=== PATIENT | male | born 1960 | race Two or more races ===

== ENCOUNTER 2016-06-16 18:14 | Inpatient (IN) | payer BC ==
[~2016-06-16] VITALS: Ht 170.2 cm; Wt 77.6 kg
[2016-06-16] MEDS ORDERED: METFORMIN HCL1000 M1 ORAL (18:51)
[2016-06-16] MEDS ORDERED: LIPITOR10 MG ORAL (18:51)
[2016-06-16] MEDS ORDERED: PRINIVIL10 MG ORAL (18:51)
[2016-06-16 19:19] LABS: MEAN CORPUSCULAR HGB CONC 32.9 G/DL (32.0-36.0); MEAN CORPUSCULAR VOLUME 88 FL (80-99); MEAN PLATELET VOLUME 5.3 FL (6.5-10.1); PLATELET COUNT 208 K/UL (150-450); RED BLOOD COUNT 4.17 M/UL (4.70-6.10); RED CELL DISTRIBUTION WIDTH 11.8 % (11.6-14.8); WHITE BLOOD COUNT 10.3 K/UL (4.8-10.8)
[2016-06-16 19:27] LABS: APPEARANCE,URINE SLIGHTLY CLOUDY; KETONES,URINE NEGATIVE (NEGATIVE); LEUKOCYTE ESTERASE ,URINE NEGATIVE (NEGATIVE); NITRITE,URINE NEGATIVE (NEGATIVE); PH,URINE 5 (4.5-8.0); PROTEIN,URINE 3+ (NEGATIVE); UROBILINOGEN,URINE NORMAL MG/DL (0.0-1.0)
[2016-06-16 19:49] LABS: ALANINE AMINOTRANSFERASE 91 U/L (3-41); ALBUMIN/GLOBULIN RATIO 0.9 (1.0-2.7); ANION GAP 17 (5-15); ASPARTATE AMINO TRANSFERASE 79 U/L (5-40); CARBON DIOXIDE 24 mEQ/L (20-30); CHLORIDE 97 mEQ/L (98-107); CREATININE 1.1 mg/dL (0.7-1.2); GLOMERULAR FILTRATION RATE > 60 mL/min (>60); HEMOLYSIS 6; POTASSIUM 3.3 mEQ/L (3.4-4.9); SODIUM 138 mEQ/L (135-145); TOTAL PROTEIN 7.3 g/dL (6.6-8.7)
[2016-06-16 19:54] LABS: BACTERIA,URINE FEW /HPF; SQUAMOUS EPITHELIAL CELL,UR OCCASIONAL /LPF (NONE/OCC); WBC,URINE 0-2 /HPF (0 - 0)
[2016-06-16 20:02] LABS: LIPASE 448 U/L (< 60)
[2016-06-16 20:08] LABS: BAND NEUTROPHILS % (MANUAL) 7 % (0-8); LYMPHOCYTES % (MANUAL) 7 % (20-45); NEUTROPHILS % (MANUAL) 84 % (45-75); TOTAL CELLS COUNTED 100
[2016-06-16 20:09] LABS: BASOPHILS % (MANUAL) 0 % (0-2); EOSINOPHILS % (MANUAL) 0 % (0-3); PLATELET ESTIMATE ADEQUATE; PLATELET MORPHOLOGY NORMAL
[2016-06-16] MEDS ORDERED: Morphine Sulfate 4mg/ml Inj IVP ONE (20:15)
[2016-06-16] MEDS: LR 1000ml 1,000 ML IV SCH (20:23)
--- NOTE | 2016-06-16 20:46 | Emergency Room Report ---
History of Present Illness General Chief Complaint: Abdominal Pain Source: Patient Present Illness HPI 56 YO M with Type 2 DM with 1 week nausea and abdominal pain (non -focal) radiating to back. Denies fever/chills, diarrhea, vomiting, urinary symptoms, heavy ETOH use, previous history of pancreatitis/gallstones. Denies other medical problems. Not taking any OTC meds. Patient states taking experimental DM Type 2 drug Dulagutide which he was told can cause pancreatitis as side effect. Allergies: Coded Allergies: No Known Allergies (Unverified , 06/16/16) Patient History Past Medical History: DM Past Surgical History: none Pertinent Family History: none Social History: Denies: alcohol use, drug use, smoking Immunizations: UTD Reviewed Nursing Documentation: PMH: Agreed, PSxH: Agreed Nursing Documentation-PMH Hx Diabetes: Yes Review of Systems All Other Systems: negative except mentioned in HPI Physical Exam Vital Signs Date Time Temp Pulse Resp B/P Pulse Ox O2 Delivery O2 Flow Rate FiO2 06/16/16 18:44 98.2 111 16 138/71 97 Sp02 EP Interpretation: reviewed, normal General Appearance: normal inspection, well appearing, no apparent distress, alert, GCS 15, non-toxic Head: normocephalic, atraumatic Eyes: bilateral eye EOMI, bilateral eye PERRL ENT: normal ENT inspection, hearing grossly normal, normal voice Neck: normal inspection, full range of motion, supple, no bony tend Respiratory: normal inspection, lungs clear, normal breath sounds, no respiratory distress, no retraction, no wheezing Cardiovascular #1: regular rate, rhythm, no edema Gastrointestinal: normal inspection, normal bowel sounds, non tender, soft, no mass, no organomegaly, non-distended, no guarding, no hernia, no pulsatile mass , no rebound Genitourinary: no CVA tenderness Musculoskeletal: normal inspection, back normal, normal range of motion, Ora' s Sign negative Neurologic: normal inspection, alert, oriented x3, responsive, procurement cost coordinator III-XII nml as tested, speech normal Psychiatric: normal inspection, judgement/insight normal, mood/affect normal Skin: normal inspection, normal color, no rash Medical Decision Making Diagnostic Impression: Primary Impression: Abdominal pain Qualified Codes: R10.84 - Generalized abdominal pain Additional Impression: Pancreatitis Qualified Codes: K85.30 - Drug induced acute pancreatitis without necrosis or infection ER Course Labs: No leuks. H&H stable. Elevated lipase 448. Mild elevation in LFTs. UA negative for infection CTAP pending Analgesia, IVF hydration, NPO placed Endorsed to Dr Lawrence and GARY Galindo at 845pm for med surg admission Last Vital Signs Date Time Temp Pulse Resp B/P Pulse Ox O2 Delivery O2 Flow Rate FiO2 06/16/16 18:44 98.2 111 16 138/71 97 Status: improved Disposition: ADMITTED INPATIENT Condition: Serious Referrals: NOT CHOSEN MARSHALL/,REFERRING (PCP) CHRISTEL ROLLINS M.D. Jun 16, 2016 20:46
[2016-06-16 20:47] VITALS: BP 142/76
[2016-06-16 23:30] VITALS: BP 165/73
[2016-06-16] MEDS ORDERED: Acetaminophen 650 MG SUPP RECTAL ONE (23:36)
[2016-06-16] MEDS: Morphine Sulfate 4mg/ml Inj IVP PRN (23:46)
[2016-06-16] MEDS ORDERED: Cefepime 1gm vial ONE (23:59)
[2016-06-17] MEDS ORDERED: metroNIDAZOLE 500mg 100 ML IVPB ONE
[2016-06-17] MEDS ORDERED: Cefepime HCl 1 GM in D5W 55 ML IVPB ONE ×2
[2016-06-17] MEDS ORDERED: Morphine Sulfate 4mg/ml Inj IVP PRN (00:45)
[2016-06-17] MEDS ORDERED: Morphine Sulfate 2mg/ml Inj IVP PRN (00:45)
[2016-06-17 01:10] VITALS: BP 152/54
[2016-06-17] MEDS: LR 1000ml 1,000 ML IV SCH (01:15)
[2016-06-17 01:20] VITALS: BP 159/69
[2016-06-17 04:00] VITALS: BP 144/61
[2016-06-17] MEDS: NovoLOG Insulin Flexpen SUBQ SCH ×4 (06:30→21:25)
[2016-06-17] MEDS: Morphine Sulfate 4mg/ml Inj IVP PRN (07:09)
[2016-06-17 08:00] VITALS: BP 156/67
[2016-06-17 08:24] LABS: MEAN CORPUSCULAR HEMOGLOBIN 29.8 PG (27.0-31.0); MEAN CORPUSCULAR VOLUME 88 FL (80-99); MEAN PLATELET VOLUME 5.4 FL (6.5-10.1); PLATELET COUNT 191 K/UL (150-450); RED BLOOD COUNT 3.75 M/UL (4.70-6.10); WHITE BLOOD COUNT 12.4 K/UL (4.8-10.8)
[2016-06-17 08:51] LABS: ALANINE AMINOTRANSFERASE 89 U/L (3-41); ANION GAP 16 (5-15); ASPARTATE AMINO TRANSFERASE 70 U/L (5-40); CALCIUM 8.1 mg/dL (8.6-10.2); CARBON DIOXIDE 22 mEQ/L (20-30); CHLORIDE 100 mEQ/L (98-107); CREATININE 1.1 mg/dL (0.7-1.2); GLOMERULAR FILTRATION RATE > 60 mL/min (>60); HEMOLYSIS 2; POTASSIUM 4.6 mEQ/L (3.4-4.9); SODIUM 138 mEQ/L (135-145)
[2016-06-17] MEDS: Lisinopril 10mg tab ORAL SCH (09:00)
[2016-06-17] MEDS: metFORMIN 500mg tab ORAL SCH ×2 (09:00→18:00)
[2016-06-17] MEDS: Heparin 5000 units/ml inj SUBQ SCH ×2 (09:01→21:26)
--- NOTE | 2016-06-17 10:12 | Diagnostic Imaging Report ---
Indication: Abdominal pain Technique: Continuous helical transaxial imaging of the abdomen and pelvis was obtained from the lung bases to the pubic symphysis during intravenous contrast administration. Coronal 2-D reformats were also obtained. Study obtained in a Siemens sensation [address] Total Dose length Product (DLP): [address] Dose Index Volume (CTDIvol): 18, 18, 8, mGy Comparison: None Findings: Reticular densities and atelectasis noted at the lung bases. Gallbladder is unremarkable. Mildly distended loops of small bowel are noted in the abdomen. Suspect enteritis. Bladder is unremarkable. There is a small right inguinal hernia containing fat. Appendix is normal. Arterial vascular calcifications are noted. Perinephric stranding noted bilaterally nonspecific. Within the posterior part of the left lobe of the liver in the lateral segment there is a hypodense mass with some pooling of contrast along the periphery. This is probably hemangioma but not proven are adequately evaluated on the current exam as obtained. The lesion measures about 3.2 x 2.5 cm. Adrenal glands are unremarkable. The pancreas is unremarkable. Spleen noted and unremarkable. Cysts small hiatal hernia is present. Few diverticula noted. Impression: Suspected mild enteritis. Please correlate clinically. Normal appendix Perinephric stranding nonspecific. Small mass noted within the liver probably hemangioma. Suggest further evaluation. Diverticulosis of the colon Small inguinal hernia containing fat on the right. Small hiatal hernia. Interstitial opacities at the lung bases nonspecific. Basilar atelectasis also noted. Atherosclerotic vascular disease Dr. Reich has communicated the preliminary results to the Emergency Department. There are no significant discrepancies. The CT scanner at [facility] is accredited by the [employer] and the scans are performed using protocols designed to limit radiation exposure to as low as reasonably achievable to attain images of sufficient resolution adequate for diagnostic evaluation.
[2016-06-17 10:15] LABS: BAND NEUTROPHILS % (MANUAL) 3 % (0-8); BASOPHILS % (MANUAL) 1 % (0-2); EOSINOPHILS % (MANUAL) 1 % (0-3); LYMPHOCYTES % (MANUAL) 6 % (20-45); NEUTROPHILS % (MANUAL) 87 % (45-75); PLATELET ESTIMATE ADEQUATE; PLATELET MORPHOLOGY NORMAL; TOTAL CELLS COUNTED 100
[2016-06-17 12:00] VITALS: BP 154/74
--- NOTE | 2016-06-17 12:46 | Infectious Diseases Prog Note ---
Assessment/Plan Problems: (1) Pancreatitis Assessment & Plan: suspect due to alchol abuse, need to rule out gall stones, will order gall bladder US, continue unasyn for now empirically (2) Cholecystitis, acute Assessment & Plan: will order liver US to confirm , continue unasyn for now (3) Fever Assessment & Plan: due to the above, continue antibiotics and tylenol (4) Abdominal pain Assessment & Plan: due to the above, continue pain management as per primary Subjective Allergies: Coded Allergies: No Known Allergies (Unverified , 06/16/16) Objective Vital Signs Last 24 Hour Vital Signs Date Time Temp Pulse Resp B/P Pulse Ox O2 Delivery O2 Flow Rate FiO2 06/17/16 12:00 100.0 105 18 154/74 94 Nasal Cannula 2.0 06/17/16 09:00 156/67 06/17/16 08:00 96.4 99 18 156/67 94 Nasal Cannula 2.0 06/17/16 07:39 98.0 06/17/16 04:00 98.0 111 18 144/61 95 Nasal Cannula 2.0 06/17/16 01:20 98.4 113 20 159/69 93 Nasal Cannula 2.0 06/17/16 01:15 100.5 110 28 152/54 95 Nasal Cannula 3.0 06/17/16 01:10 100.5 110 28 152/54 95 Nasal Cannula 3.0 06/17/16 00:28 100.5 06/16/16 23:30 102.3 123 31 165/73 92 Nasal Cannula 3.0 06/16/16 20:53 98.2 06/16/16 20:47 98.2 89 16 142/76 97 06/16/16 18:44 98.2 111 16 138/71 97 Height (Feet): 5 Height (Inches): 7.00 Weight (Pounds): 171 Laboratory Tests Test 06/16/16 18:57 06/16/16 23:59 06/17/16 05:45 White Blood Count 10.3 K/UL (4.8-10.8) 12.4 K/UL (4.8-10.8) H Red Blood Count 4.17 M/UL (4.70-6.10) L 3.75 M/UL (4.70-6.10) L Hemoglobin 12.1 G/DL (14.2-18.0) L 11.2 G/DL (14.2-18.0) L Hematocrit 36.8 % (42.0-52.0) L 32.9 % (42.0-52.0) L Mean Corpuscular Volume 88 FL (80-99) 88 FL (80-99) Mean Corpuscular Hemoglobin 29.0 PG (27.0-31.0) 29.8 PG (27.0-31.0) Mean Corpuscular Hemoglobin Concent 32.9 G/DL (32.0-36.0) 34.0 G/DL (32.0-36.0) Red Cell Distribution Width 11.8 % (11.6-14.8) 12.0 % (11.6-14.8) Platelet Count 208 K/UL (150-450) 191 K/UL (150-450) Mean Platelet Volume 5.3 FL (6.5-10.1) L 5.4 FL (6.5-10.1) L Neutrophils (%) (Auto) % (45.0-75.0) % (45.0-75.0) Lymphocytes (%) (Auto) % (20.0-45.0) % (20.0-45.0) Monocytes (%) (Auto) % (1.0-10.0) % (1.0-10.0) Eosinophils (%) (Auto) % (0.0-3.0) % (0.0-3.0) Basophils (%) (Auto) % (0.0-2.0) % (0.0-2.0) Differential Total Cells Counted 100 100 Neutrophils % (Manual) 84 % (45-75) H 87 % (45-75) H Lymphocytes % (Manual) 7 % (20-45) L 6 % (20-45) L Monocytes % (Manual) 2 % (1-10) 2 % (1-10) Eosinophils % (Manual) 0 % (0-3) 1 % (0-3) Basophils % (Manual) 0 % (0-2) 1 % (0-2) Band Neutrophils 7 % (0-8) 3 % (0-8) Platelet Estimate Adequate Adequate Platelet Morphology Normal Normal Red Blood Cell Morphology Normal Normal Urine Color Pale yellow Urine Appearance Slightly cloudy Urine pH 5 (4.5-8.0) Urine Specific [place] 1.020 (1.005-1.035) Urine Protein 3+ (NEGATIVE) H Urine Glucose (UA) Negative (NEGATIVE) Urine Ketones Negative (NEGATIVE) Urine Occult Blood 1+ (NEGATIVE) H Urine Nitrite Negative (NEGATIVE) Urine Bilirubin Negative (NEGATIVE) Urine Urobilinogen Normal MG/DL (0.0-1.0) Urine Leukocyte Esterase Negative (NEGATIVE) Urine RBC 2-4 /HPF (0 - 0) H Urine WBC 0-2 /HPF (0 - 0) Urine Squamous Epithelial Cells Occasional /LPF Urine Bacteria Few /HPF (NONE) Sodium Level 138 mEQ/L (135-145) 138 mEQ/L (135-145) Potassium Level 3.3 mEQ/L (3.4-4.9) L 4.6 mEQ/L (3.4-4.9) Chloride Level 97 mEQ/L (98-107) L 100 mEQ/L (98-107) Carbon Dioxide Level 24 mEQ/L (20-30) 22 mEQ/L (20-30) Anion Gap 17 (5-15) H 16 (5-15) H Blood Urea Nitrogen 21 mg/dL (7-23) 19 mg/dL (7-23) Creatinine 1.1 mg/dL (0.7-1.2) 1.1 mg/dL (0.7-1.2) Estimat Glomerular Filtration Rate > 60 mL/min (>60) > 60 mL/min (>60) Glucose Level 250 mg/dL (74-106) H 282 mg/dL (74-106) H Calcium Level 9.0 mg/dL (8.6-10.2) 8.1 mg/dL (8.6-10.2) L Total Bilirubin 0.5 mg/dL (0.0-1.2) 0.4 mg/dL (0.0-1.2) Aspartate Amino Transf (AST/SGOT) 79 U/L (5-40) H 70 U/L (5-40) H Alanine Aminotransferase (ALT/SGPT) 91 U/L (3-41) H 89 U/L (3-41) H Alkaline Phosphatase 93 U/L (40-129) 81 U/L (40-129) Total Protein 7.3 g/dL (6.6-8.7) 6.0 g/dL (6.6-8.7) L Albumin 3.6 g/dL (3.5-5.2) 3.0 g/dL (3.5-5.2) L Globulin 3.7 g/dL 3.0 g/dL Albumin/Globulin Ratio 0.9 (1.0-2.7) L 1.0 (1.0-2.7) Lipase 448 U/L (< 60) H Lactic Acid Level 1.30 mmol/L (0.66-2.22) Current Medications Medications (Trade) Dose Ordered Sig/Melvin Route PRN Reason Start Time Stop Time Status Last Admin Dose Admin Acetaminophen (Tylenol) 650 mg Q4H PRN ORAL fever 06/17/16 00:45 07/17/16 00:44 06/17/16 12:23 Ampicillin Sodium/ Sulbactam Sodium/ Sodium Chloride (Unasyn/Sodium Chloride) 110 ml @ 220 mls/hr Q6HR IVPB 06/17/16 12:00 06/24/16 11:59 Dextrose (Dextrose 50%) STAT PRN IV Hypoglycemia 06/17/16 00:45 07/17/16 00:44 Dextrose/ Electrolytes (D5NS W/KCl 20meq 1000ml) 1,000 ml @ 100 mls/hr Q10H IV 06/17/16 01:36 07/17/16 01:35 06/17/16 02:23 Heparin Sodium (Porcine) (Heparin 5000 units/ml) 5,000 units EVERY 12 HOURS SUBQ 06/17/16 09:00 07/17/16 08:59 06/17/16 09:01 Insulin Aspart BEFORE MEALS AND HS SUBQ 06/17/16 06:30 07/17/16 06:29 Lisinopril (Zestril) 10 mg DAILY ORAL 06/17/16 09:00 07/17/16 08:59 06/17/16 09:00 Metformin HCl (Glucophage) 1,000 mg BID ORAL 06/17/16 09:00 07/17/16 08:59 06/17/16 09:00 Morphine Sulfate (Morphine Sulfate) 2 mg Q4H PRN IVP Moderate Pain (Pain Scale 4-6) 06/17/16 00:45 06/24/16 00:44 Morphine Sulfate (Morphine Sulfate) 4 mg Q4H PRN IVP Severe Pain (Pain Scale 7-10) 06/17/16 00:45 06/24/16 00:44 Morphine Sulfate 4 mg 4 mg Q4H PRN IVP For Pain 06/16/16 23:45 06/23/16 23:44 06/17/16 07:09 Ondansetron HCl (Zofran) 4 mg Q6H PRN IVP Nausea & Vomiting 06/17/16 00:45 07/17/16 00:44 Gerardo Rodriguez M.D. Jun 17, 2016 12:46
[2016-06-17] MEDS: Ampicillin/Sulbactam Sod 3 GM in NS 110 ML IVPB SCH ×2 (13:07→18:59)
[2016-06-17 17:57] VITALS: BP 127/67
--- NOTE | 2016-06-17 20:18 | Consultation ---
DATE OF CONSULTATION: 06/17/2016 CONSULTING PHYSICIAN: Jason Anders M.D. REFERRING PHYSICIAN: Jose Carlos Gordon M.D. CHIEF COMPLAINT: Nausea, vomiting, and abdominal pain. 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 In the ER, the patient had labs. The patient's lipase was elevated to about 448, and the patient was diagnosed with possible pancreatitis and admitted to the hospital. PAST MEDICAL HISTORY: 1. Diabetes. 2. Hypertension. 3. Hypercholesterolemia. ALLERGIES: No known drug allergies. MEDICATIONS: Please see medication reconciliation list. SOCIAL HISTORY: The patient smokes about one pack to one and half pack per day. Alcohol, denies any alcohol usage. He had prior history of, 20 years ago, alcohol abuse, but not anymore. No IV drug abuse. 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 FAMILY HISTORY: No family history of GI malignancies. PAST SURGICAL HISTORY: The patient has a rectal abscess drainage x2. No prior history of endoscopy or colonoscopy. REVIEW OF SYSTEMS: A 10-point review of systems was performed and pertinent positives as mentioned in history of present illness. PHYSICAL EXAMINATION: GENERAL: A well-developed male, in no acute distress. VITAL SIGNS: Most recent vital signs, temperature is 98 degrees, pulse is 111, respirations 18, and blood pressure is 144/61. HEENT: Normocephalic. Sclerae anicteric. NECK: Supple. No lymphadenopathy. CARDIOVASCULAR: Regular rate and rhythm. Plus S1 and S2. LUNGS: Clear to auscultation bilaterally. ABDOMEN: Positive bowel sounds. Soft. Minimal tenderness to palpation in the epigastric area noted. No adenopathy. EXTREMITIES: No cyanosis, clubbing, or edema. LABORATORY DATA: White count is 12.4, hemoglobin 11.2, hematocrit 32.9, and platelet count is 191,000. AST was 79, ALT of 91. Lipase was 448. ASSESSMENT: This is a 56-year-old male with chemical pancreatitis, abdominal pain, and history of diabetes. PLAN: The patient to be started on a clear liquid diet. We will get an abdominal ultrasound to rule out fatty liver or gallbladder disease. We will repeat the labs for tomorrow. Check lipid panel to rule out hypertriglyceridemia as a cause of pancreatitis. Anemia workup. The patient at one point would need an endoscopy and colonoscopy for workup of anemia and also given he is over 50 and never had a colonoscopy before. I want to thank, Dr. Jose Carlos Gordon, for this kind referral. Jason Anders M.D. DR: CASPER JOB#: [id number] CC: Jose Carlos Gordon M.D.; Fax#: [phone]
--- NOTE | 2016-06-17 20:29 | History and Physical ---
History of Present Illness General Date patient seen: Jun 17, 2016 Reason for Hospitalization: Abdominal Pain Present Illness HPI 56 y/o male with history of DM and hyperlipidemia presented to the ED c/o abdominal pain and nausea for 1 week. Denies any fever or chills. Denied any fever or chills. Patient states he has been taking experimental DM Type 2 drug Dulagutide which he was told can cause pancreatitis as a side effect. His lipase levels were elevated and admitted for further care. Allergies: Coded Allergies: No Known Allergies (Unverified , 06/16/16) Medication History Scheduled Atorvastatin Calcium* (Lipitor*), 10 MG ORAL DAILY, (Reported) Lisinopril* (Prinivil*), 10 MG ORAL DAILY, (Reported) Metformin Hcl* (Metformin Hcl*), 1,000 MG ORAL BID, (Reported) Patient History History Provided By: Patient Healthcare decision maker SELF Resuscitation status Full Code Advanced Directive on File N/A Past Medical/Surgical History Past Medical/Surgical History: (1) DM (diabetes mellitus) Review of Systems All Other Systems: negative except mentioned in HPI Physical Exam General Appearance: WD/WN, no apparent distress HEENT: normocephalic, atraumatic Neck: supple Respiratory/Chest: lungs clear Cardiovascular/Chest: normal rate, regular rhythm Abdomen: non tender, soft Extremities: no edema Neurologic: alert, oriented x 3 Last 24 Hour Vital Signs Date Time Temp Pulse Resp B/P Pulse Ox O2 Delivery O2 Flow Rate FiO2 06/17/16 17:57 97.9 77 20 127/67 97 Nasal Cannula 2.0 06/17/16 13:22 98.8 06/17/16 12:00 100.0 105 18 154/74 94 Nasal Cannula 2.0 06/17/16 09:00 156/67 06/17/16 08:00 96.4 99 18 156/67 94 Nasal Cannula 2.0 06/17/16 07:39 98.0 06/17/16 04:00 98.0 111 18 144/61 95 Nasal Cannula 2.0 06/17/16 01:20 98.4 113 20 159/69 93 Nasal Cannula 2.0 06/17/16 01:15 100.5 110 28 152/54 95 Nasal Cannula 3.0 06/17/16 01:10 100.5 110 28 152/54 95 Nasal Cannula 3.0 06/17/16 00:28 100.5 06/16/16 23:30 102.3 123 31 165/73 92 Nasal Cannula 3.0 06/16/16 20:53 98.2 06/16/16 20:47 98.2 89 16 142/76 97 Intake and Output 06/16/16 06/17/16 19:00 07:00 Intake Total 350 ml Output Total 950 ml Balance -600 ml Intake IV Total 350 ml Output Urine Total 950 ml Laboratory Tests Test 06/16/16 23:59 06/17/16 05:45 06/17/16 16:20 Lactic Acid Level 1.30 mmol/L (0.66-2.22) White Blood Count 12.4 K/UL (4.8-10.8) H Red Blood Count 3.75 M/UL (4.70-6.10) L Hemoglobin 11.2 G/DL (14.2-18.0) L Hematocrit 32.9 % (42.0-52.0) L Mean Corpuscular Volume 88 FL (80-99) Mean Corpuscular Hemoglobin 29.8 PG (27.0-31.0) Mean Corpuscular Hemoglobin Concent 34.0 G/DL (32.0-36.0) Red Cell Distribution Width 12.0 % (11.6-14.8) Platelet Count 191 K/UL (150-450) Mean Platelet Volume 5.4 FL (6.5-10.1) L Neutrophils (%) (Auto) % (45.0-75.0) Lymphocytes (%) (Auto) % (20.0-45.0) Monocytes (%) (Auto) % (1.0-10.0) Eosinophils (%) (Auto) % (0.0-3.0) Basophils (%) (Auto) % (0.0-2.0) Differential Total Cells Counted 100 Neutrophils % (Manual) 87 % (45-75) H Lymphocytes % (Manual) 6 % (20-45) L Monocytes % (Manual) 2 % (1-10) Eosinophils % (Manual) 1 % (0-3) Basophils % (Manual) 1 % (0-2) Band Neutrophils 3 % (0-8) Platelet Estimate Adequate Platelet Morphology Normal Red Blood Cell Morphology Normal Sodium Level 138 mEQ/L (135-145) Potassium Level 4.6 mEQ/L (3.4-4.9) Chloride Level 100 mEQ/L (98-107) Carbon Dioxide Level 22 mEQ/L (20-30) Anion Gap 16 (5-15) H Blood Urea Nitrogen 19 mg/dL (7-23) Creatinine 1.1 mg/dL (0.7-1.2) Estimat Glomerular Filtration Rate > 60 mL/min (>60) Glucose Level 282 mg/dL (74-106) H Calcium Level 8.1 mg/dL (8.6-10.2) L Total Bilirubin 0.4 mg/dL (0.0-1.2) Aspartate Amino Transf (AST/SGOT) 70 U/L (5-40) H Alanine Aminotransferase (ALT/SGPT) 89 U/L (3-41) H Alkaline Phosphatase 81 U/L (40-129) Total Protein 6.0 g/dL (6.6-8.7) L Albumin 3.0 g/dL (3.5-5.2) L Globulin 3.0 g/dL Albumin/Globulin Ratio 1.0 (1.0-2.7) Urine Opiates Screen Positive (NEGATIVE) H Urine Barbiturates Screen Negative (NEGATIVE) Phencyclidine (PCP) Screen Negative (NEGATIVE) Urine Amphetamines Screen Negative (NEGATIVE) Urine Benzodiazepines Screen Negative (NEGATIVE) Urine Cocaine Screen Negative (NEGATIVE) Urine Marijuana (THC) Screen Negative (NEGATIVE) Height (Feet): 5 Height (Inches): 7.00 Weight (Pounds): 171 Medications Current Medications Medications (Trade) Dose Ordered Sig/Melvin Route PRN Reason Start Time Stop Time Status Last Admin Dose Admin Acetaminophen (Tylenol) 650 mg Q4H PRN ORAL fever 06/17/16 00:45 07/17/16 00:44 06/17/16 18:59 Ampicillin Sodium/ Sulbactam Sodium/ Sodium Chloride (Unasyn/Sodium Chloride) 110 ml @ 220 mls/hr Q6HR IVPB 06/17/16 12:00 06/24/16 11:59 06/17/16 18:59 Dextrose (Dextrose 50%) STAT PRN IV Hypoglycemia 06/17/16 00:45 07/17/16 00:44 Dextrose/ Electrolytes (D5NS W/KCl 20meq 1000ml) 1,000 ml @ 100 mls/hr Q10H IV 06/17/16 01:36 07/17/16 01:35 06/17/16 13:06 Heparin Sodium (Porcine) (Heparin 5000 units/ml) 5,000 units EVERY 12 HOURS SUBQ 06/17/16 09:00 07/17/16 08:59 06/17/16 09:01 Insulin Aspart BEFORE MEALS AND HS SUBQ 06/17/16 06:30 07/17/16 06:29 06/17/16 13:14 Lisinopril (Zestril) 10 mg DAILY ORAL 06/17/16 09:00 07/17/16 08:59 06/17/16 09:00 Metformin HCl (Glucophage) 1,000 mg BID ORAL 06/17/16 09:00 07/17/16 08:59 06/17/16 09:00 Morphine Sulfate (Morphine Sulfate) 2 mg Q4H PRN IVP Moderate Pain (Pain Scale 4-6) 06/17/16 00:45 06/24/16 00:44 Morphine Sulfate (Morphine Sulfate) 4 mg Q4H PRN IVP Severe Pain (Pain Scale 7-10) 06/17/16 00:45 06/24/16 00:44 Morphine Sulfate 4 mg 4 mg Q4H PRN IVP For Pain 06/16/16 23:45 06/23/16 23:44 06/17/16 07:09 Ondansetron HCl (Zofran) 4 mg Q6H PRN IVP Nausea & Vomiting 06/17/16 00:45 07/17/16 00:44 Assessment/Plan Problem List: (1) Fever ICD Codes: R50.9 - Fever, unspecified SNOMED: 733170388 (2) Pancreatitis ICD Codes: K85.90 - Acute pancreatitis without necrosis or infection, unspecified SNOMED: 53109579 Qualifiers: Qualified Codes: K85.30 - Drug induced acute pancreatitis without necrosis or infection (3) Abdominal pain ICD Codes: R10.9 - Unspecified abdominal pain SNOMED: 41188601 Qualifiers: Qualified Codes: R10.84 - Generalized abdominal pain (4) Anemia ICD Codes: D64.9 - Anemia, unspecified SNOMED: 330744133 (5) DM (diabetes mellitus) ICD Codes: E11.9 - Type 2 diabetes mellitus without complications SNOMED: 89761500 Assessment/Plan Dr. Anders called for GI. Dr. Rodriguez called for ID. NPO. IVF. Pain management. Empiric abx with Unasyn given spiking fever. (per ID rec) Resume home meds. D/w Dr. Gordon. RIGO MAYA Jun 17, 2016 20:29
[2016-06-18] VITALS: BP 153/78
[2016-06-18] MEDS: Ampicillin/Sulbactam Sod 3 GM in NS 110 ML IVPB SCH ×5 (00:46→23:41)
[2016-06-18 04:00] VITALS: BP 151/82
[2016-06-18] MEDS: Morphine Sulfate 4mg/ml Inj IVP PRN ×3 (06:26→22:04)
[2016-06-18] MEDS: NovoLOG Insulin Flexpen SUBQ SCH ×4 (06:30→22:06)
[2016-06-18 07:26] LABS: BASOPHILS % (AUTO) 0.8 % (0.0-2.0); MEAN CORPUSCULAR HEMOGLOBIN 29.1 PG (27.0-31.0); MEAN CORPUSCULAR HGB CONC 33.3 G/DL (32.0-36.0); MEAN CORPUSCULAR VOLUME 88 FL (80-99); MEAN PLATELET VOLUME 5.7 FL (6.5-10.1); MONOCYTES % (AUTO) 13.2 % (1.0-10.0); NEUTROPHILS % (AUTO) 66.9 % (45.0-75.0); PLATELET COUNT 217 K/UL (150-450); RED BLOOD COUNT 3.61 M/UL (4.70-6.10); RED CELL DISTRIBUTION WIDTH 12.1 % (11.6-14.8); WHITE BLOOD COUNT 8.9 K/UL (4.8-10.8)
[2016-06-18 07:58] LABS: ALANINE AMINOTRANSFERASE 98 U/L (3-41); ALBUMIN/GLOBULIN RATIO 0.8 (1.0-2.7); AMYLASE 18 U/L (10-110); ANION GAP 17 (5-15); ASPARTATE AMINO TRANSFERASE 53 U/L (5-40); CALCIUM 8.2 mg/dL (8.6-10.2); CARBON DIOXIDE 21 mEQ/L (20-30); CHLORIDE 103 mEQ/L (98-107); CHOLESTEROL 70 mg/dL (< 200); CHOLESTEROL/HDL RATIO 3.7 (3.3-4.4); CREATININE 0.8 mg/dL (0.7-1.2); GLOMERULAR FILTRATION RATE > 60 mL/min (>60); HEMOLYSIS 2; LDL CHOLESTEROL (CALC.) 37 mg/dL (60-99); LIPASE 10 U/L (< 60); POTASSIUM 3.8 mEQ/L (3.4-4.9); SODIUM 141 mEQ/L (135-145); TOTAL PROTEIN 6.2 g/dL (6.6-8.7)
[2016-06-18 08:00] VITALS: BP 131/82
[2016-06-18 08:04] LABS: HEMOLYSIS 8; IRON 33 ug/dL (59-158); TOTAL IRON BINDING CAPACITY 184 ug/dL (250-400)
--- NOTE | 2016-06-18 08:29 | General Progress Note ---
Assessment/Plan Problem List: (1) Pancreatitis ICD Codes: K85.90 - Acute pancreatitis without necrosis or infection, unspecified SNOMED: 90050115 Qualifiers: Qualified Codes: K85.30 - Drug induced acute pancreatitis without necrosis or infection (2) Abdominal pain ICD Codes: R10.9 - Unspecified abdominal pain SNOMED: 79897233 Qualifiers: Qualified Codes: R10.84 - Generalized abdominal pain (3) Anemia ICD Codes: D64.9 - Anemia, unspecified SNOMED: 620070542 (4) Diverticulosis ICD Codes: K57.90 - Diverticulosis of intestine, part unspecified, without perforation or abscess without bleeding SNOMED: 585461897 Assessment/Plan patient lipase now is normal patient was offered to have EGd and colonoscopy tomorrow foe anemia but he wants to go home today and have it as out patient advance diet dc if stable fu as out patient Subjective ROS Limited/Unobtainable: Yes Allergies: Coded Allergies: No Known Allergies (Unverified , 06/16/16) Subjective feels better Objective Last 24 Hour Vital Signs Date Time Temp Pulse Resp B/P Pulse Ox O2 Delivery O2 Flow Rate FiO2 06/18/16 04:00 97.2 100 10 151/82 92 Room Air 06/18/16 00:00 97.0 90 20 153/78 97 Room Air 06/17/16 20:05 99.2 06/17/16 17:57 97.9 77 20 127/67 97 Nasal Cannula 2.0 06/17/16 12:00 100.0 105 18 154/74 94 Nasal Cannula 2.0 06/17/16 09:00 156/67 Intake and Output 06/17/16 06/18/16 19:00 07:00 Output Total 750 ml 1450 ml Balance -750 ml -1450 ml Output Urine Total 750 ml 1450 ml Laboratory Tests 06/17/16 16:20: Urine Opiates Screen PositiveH, Urine Barbiturates Screen Negative, Phencyclidine (PCP) Screen Negative, Urine Amphetamines Screen Negative, Urine Benzodiazepines Screen Negative, Urine Cocaine Screen Negative, Urine Marijuana (THC) Screen Negative 06/18/16 04:40: White Blood Count 8.9, Red Blood Count 3.61L, Hemoglobin 10.5L, Hematocrit 31.6L , Mean Corpuscular Volume 88, Mean Corpuscular Hemoglobin 29.1, Mean Corpuscular Hemoglobin Concent 33.3, Red Cell Distribution Width 12.1, Platelet Count 217, Mean Platelet Volume 5.7L, Neutrophils (%) (Auto) 66.9, Lymphocytes ( %) (Auto) 17.0L, Monocytes (%) (Auto) 13.2H, Eosinophils (%) (Auto) 2.0, Basophils (%) (Auto) 0.8, Sodium Level 141, Potassium Level 3.8, Chloride Level 103, Carbon Dioxide Level 21, Anion Gap 17H, Blood Urea Nitrogen 10, Creatinine 0.8, Estimat Glomerular Filtration Rate > 60, Glucose Level 145#H, Calcium Level 8.2L, Iron Level 33L, Total Iron Binding Capacity 184L, Percent Iron Saturation 18, Unsaturated Iron Binding 151, Total Bilirubin 0.7, Aspartate Amino Transf (AST/SGOT) 53H, Alanine Aminotransferase (ALT/SGPT) 98H, Alkaline Phosphatase 104, Total Protein 6.2L, Albumin 2.8L, Globulin 3.4, Albumin/ Globulin Ratio 0.8L, Triglycerides Level 69, Cholesterol Level 70, LDL Cholesterol 37L, HDL Cholesterol 19, Cholesterol/HDL Ratio 3.7, Amylase Level 18 , Lipase 10 Height (Feet): 5 Height (Inches): 7.00 Weight (Pounds): 171 General Appearance: alert EENT: normal ENT inspection Neck: supple Cardiovascular: normal rate Respiratory/Chest: lungs clear Abdomen: normal bowel sounds, non tender, soft Extremities: non-tender ROMMEL LAMA Jun 18, 2016 08:29
[2016-06-18] MEDS: Heparin 5000 units/ml inj SUBQ SCH ×2 (09:00→22:07)
[2016-06-18] MEDS: Lisinopril 10mg tab ORAL SCH (09:58)
[2016-06-18] MEDS: metFORMIN 500mg tab ORAL SCH ×2 (09:58→17:03)
[2016-06-18 12:00] VITALS: BP 158/81
[2016-06-18 16:00] VITALS: BP 149/79
[2016-06-18 20:00] VITALS: BP 138/95
--- NOTE | 2016-06-18 20:24 | Nephrology Progress Note ---
Assessment/Plan Problem List: (1) Fever (2) Pancreatitis (3) Abdominal pain (4) Anemia (5) DM (diabetes mellitus) Plan monitor lipase level. advance diet if ok with GI. cont empiric abx.. IVF. Subjective Subjective no n/v. abd pain better. Objective Objective Last 24 Hour Vital Signs Date Time Temp Pulse Resp B/P Pulse Ox O2 Delivery O2 Flow Rate FiO2 06/18/16 17:37 98.2 06/18/16 16:00 97.1 85 20 149/79 94 Room Air 06/18/16 12:00 98.2 119 20 158/81 93 Room Air 06/18/16 09:58 131/82 06/18/16 08:00 98.0 97 18 131/82 92 Room Air 06/18/16 04:00 97.2 100 10 151/82 92 Room Air 06/18/16 00:00 97.0 90 20 153/78 97 Room Air Intake and Output 06/17/16 06/18/16 19:00 07:00 Output Total 750 ml 1450 ml Balance -750 ml -1450 ml Output Urine Total 750 ml 1450 ml Laboratory Tests 06/18/16 04:40: White Blood Count 8.9, Red Blood Count 3.61L, Hemoglobin 10.5L, Hematocrit 31.6L , Mean Corpuscular Volume 88, Mean Corpuscular Hemoglobin 29.1, Mean Corpuscular Hemoglobin Concent 33.3, Red Cell Distribution Width 12.1, Platelet Count 217, Mean Platelet Volume 5.7L, Neutrophils (%) (Auto) 66.9, Lymphocytes ( %) (Auto) 17.0L, Monocytes (%) (Auto) 13.2H, Eosinophils (%) (Auto) 2.0, Basophils (%) (Auto) 0.8, Sodium Level 141, Potassium Level 3.8, Chloride Level 103, Carbon Dioxide Level 21, Anion Gap 17H, Blood Urea Nitrogen 10, Creatinine 0.8, Estimat Glomerular Filtration Rate > 60, Glucose Level 145#H, Calcium Level 8.2L, Iron Level 33L, Total Iron Binding Capacity 184L, Percent Iron Saturation 18, Unsaturated Iron Binding 151, Total Bilirubin 0.7, Aspartate Amino Transf (AST/SGOT) 53H, Alanine Aminotransferase (ALT/SGPT) 98H, Alkaline Phosphatase 104, Total Protein 6.2L, Albumin 2.8L, Globulin 3.4, Albumin/ Globulin Ratio 0.8L, Triglycerides Level 69, Cholesterol Level 70, LDL Cholesterol 37L, HDL Cholesterol 19, Cholesterol/HDL Ratio 3.7, Amylase Level 18 , Lipase 10 Height (Feet): 5 Height (Inches): 7.00 Weight (Pounds): 171 General Appearance: no apparent distress Cardiovascular: normal rate, regular rhythm Respiratory/Chest: lungs clear Abdomen: non tender, soft STEVE KEARNS Jun 18, 2016 20:24
[2016-06-19] VITALS: BP 148/78
[2016-06-19 04:00] VITALS: BP 144/61
[2016-06-19] MEDS: Ampicillin/Sulbactam Sod 3 GM in NS 110 ML IVPB SCH ×2 (05:23→11:46)
[2016-06-19] MEDS: NovoLOG Insulin Flexpen SUBQ SCH ×3 (06:18→11:47)
[2016-06-19 08:00] VITALS: BP 172/78
[2016-06-19] MEDS: Lisinopril 10mg tab ORAL SCH (08:24)
[2016-06-19] MEDS: Heparin 5000 units/ml inj SUBQ SCH (08:25)
[2016-06-19] MEDS: metFORMIN 500mg tab ORAL SCH (08:26)
--- NOTE | 2016-06-19 09:42 | General Progress Note ---
Assessment/Plan Problem List: (1) Pancreatitis ICD Codes: K85.90 - Acute pancreatitis without necrosis or infection, unspecified SNOMED: 21470617 Qualifiers: Qualified Codes: K85.30 - Drug induced acute pancreatitis without necrosis or infection (2) Abdominal pain ICD Codes: R10.9 - Unspecified abdominal pain SNOMED: 42939455 Qualifiers: Qualified Codes: R10.84 - Generalized abdominal pain (3) Anemia ICD Codes: D64.9 - Anemia, unspecified SNOMED: 246021812 (4) Diverticulosis ICD Codes: K57.90 - Diverticulosis of intestine, part unspecified, without perforation or abscess without bleeding SNOMED: 272877471 Assessment/Plan patient lipase now is normal patient was offered to have EGD and colonoscopy for anemia but he wants to go home and have it as out patient tolerated diet fu abd us Subjective ROS Limited/Unobtainable: Yes Allergies: Coded Allergies: No Known Allergies (Unverified , 06/16/16) Subjective feels better Objective Last 24 Hour Vital Signs Date Time Temp Pulse Resp B/P Pulse Ox O2 Delivery O2 Flow Rate FiO2 06/19/16 08:56 97.0 06/19/16 08:24 144/61 06/19/16 08:00 97.0 90 18 172/78 91 Room Air 06/19/16 04:00 98.4 91 18 144/61 94 Room Air 06/19/16 00:00 98.6 98 18 148/78 93 Room Air 06/18/16 22:34 97.7 06/18/16 20:00 97.7 129 18 138/95 91 Room Air 06/18/16 16:00 97.1 85 20 149/79 94 Room Air 06/18/16 12:00 98.2 119 20 158/81 93 Room Air 06/18/16 09:58 131/82 Intake and Output 06/18/16 06/19/16 19:00 07:00 Intake Total 830 ml 220 ml Output Total 1100 ml 400 ml Balance -270 ml -180 ml Intake Oral 720 ml IV Total 110 ml 220 ml Output Urine Total 1100 ml 400 ml # Voids 4 2 Height (Feet): 5 Height (Inches): 7.00 Weight (Pounds): 171 General Appearance: alert EENT: normal ENT inspection Neck: supple Cardiovascular: normal rate Respiratory/Chest: lungs clear Abdomen: normal bowel sounds, non tender, soft Extremities: non-tender ROMMEL LAMA Jun 19, 2016 09:42
[2016-06-19 12:00] VITALS: BP 160/76
[2016-06-19] MEDS ORDERED: Influenza Virus Vaccine 0.5ml IM ONE (12:30)
--- NOTE | 2016-06-20 10:55 | Discharge Summary ---
Discharge Summary Hospital Course Date of Admission Jun 16, 2016 at 20:37 Date of Discharge Jun 19, 2016 at 14:00 Admitting Diagnosis pancreatitis HPI Ahmet Sampson is a 56 year old male who was admitted on Jun 16, 2016 at 20:37 for Pancreatitis Hospital Course dc summary #[id number] Discharge Medications Continued Medications: Atorvastatin Calcium* (Lipitor*) 10 Mg Tablet 10 MG ORAL DAILY, #30 TAB 0 Refills Lisinopril* (Prinivil*) 10 Mg Tablet 10 MG ORAL DAILY, TAB Metformin Hcl* (Metformin Hcl*) 1,000 Mg Tablet 1000 MG ORAL BID, TAB Discharge Condition Upon Discharge: stable Discharge Disposition Patient was discharged to Home (01) Discharge Diagnoses: Discharge Instructions Discharge Instructions Special Instructions I have been assigned to complete a D/C Summary on this account. I was not involved in the patient management Sondra Mtz NP ([facility]anchte[place]) Jun 20, 2016 10:55
--- NOTE | 2016-06-21 02:19 | Discharge Summary 2 SIG ---
DATE OF ADMISSION: 06/16/2016 DATE OF DISCHARGE: 06/19/2016 REASON FOR ADMISSION: 66-year-old male with history of diabetes, is taking Dulaglutide medication for type 2 diabetes and was told that he can have a pancreatitis as a side effect. He presented with one week of nausea, abdominal pain, not radiating. He denied fever or chills. No diarrhea. No vomiting. No urinary symptoms. No history of alcohol abuse. No history of pancreatitis or gallstones in the past. Laboratory workup in the emergency room revealed elevated lipase of 448, elevated LFT. No leukocytosis. Mild anemia. Urinalysis negative for urinary tract infection. CT of the abdomen and pelvis revealed suspected enteritis, unremarkable pancreas, and diverticulosis of the colon. The patient was kept NPO. The patient was started on gentle IV fluids. Analgesia provided. The patient was admitted to the hospital for further management. ADMITTING DIAGNOSES: 1. Abdominal pain. 2. Pancreatitis, drug-induced. HOSPITAL COURSE: GI consult was requested. The GI started the patient on clear liquid diet. Abdominal ultrasound was ordered to rule out gallbladder disease or fatty liver disease. LFT and lipase were closely followed. Lipase down to normal. LFT trending down. Anemia workup revealed low iron. Stool OB negative. Possible enteritis per CT abdomen and pelvis, however no clinical symptoms of enteritis,. except abdominal pain. The patient needs colonoscopy and endoscopy since over the age of 50; however, the patient declined the offer to have an EGD and colonoscopy in the hospital and expressed that he will have it in future as an outpatient. Diet slowly advanced. Able to tolerate diet. Analgesia provided as needed. Blood sugar was managed with metformin. Pancreatitis was chemical drug-induced , resolved. The patient was stable for discharge. DISCHARGE DIAGNOSES: 1. Chemical pancreatitis. 2. Anemia. 3. Diabetes mellitus. 4. Diverticulosis. DISCHARGE MEDICATIONS: See medication reconciliation list. DISCHARGE INSTRUCTIONS: The patient was discharged home. Follow up with the primary medical doctor. Recommended outpatient colonoscopy and endoscopy. Patient was told to discuss with his primary doctor further diabetes management and possible change in medication, Jose Carlos Gordon M.D. I have been assigned to dictate discharge summary on this account and I was not involved in the patient's management. Sondra Mtz N.P. ([place]tein) DR: MAIDA JOB#: [id number] CC: CHASTITY
== END 2016-06-19 14:00 | disposition home or self-care (01) | DRG 440 ==
LOC: EMR 19:04 → 4W 20:37 → EDBEDREQ 22:52
DX: K85.30 Drug induced acute pancreatitis without necrosis or infection (principal); I10 Essential (primary) hypertension; D64.9 Anemia, unspecified; E11.9 Type 2 diabetes mellitus without complications; E78.00 Pure hypercholesterolemia, unspecified; T50.995A Adverse effect of other drugs, medicaments and biological substances, initial encounter; K57.90 Diverticulosis of intestine, part unspecified, without perforation or abscess without bleeding; F17.210 Nicotine dependence, cigarettes, uncomplicated; F10.21 Alcohol dependence, in remission
CPT/HCPCS: 36415; 74177; 80053; 80061; 80300; 81003; 82150; 82270; 82962; 83540; 83550; 83605; 83690; 85007; 85025; 87040; J1815; J2405; Q2036

== ENCOUNTER → 2016-07-17 | Day surgery (SDC) | payer BC ==
[~2016-07-17] VITALS: Ht 170.2 cm; Wt 74.8 kg
[2016-07-17] VITALS (9 sets, daily range): BP systolic 129–150; BP diastolic 56–80
[~2016-07-17] MED LIST: DiphenhydrAMINE 50mg/ml Inj IVP PRN; LIPITOR10 MG ORAL; LR 1000ml 1,000 ML IVLG SCH; LR 1000ml ONE; METFORMIN HCL1000 M1 ORAL; Meperidine 25mg/ml Inj IV PRN; Midazolam 2mg/2ml Inj ONE; PRINIVIL10 MG ORAL; Propofol 10mg/ml 20ml IV ONE; fentaNYL 100 mcg/2 mL IV ONE
--- NOTE | 2016-07-17 09:45 | Pre-Procedure Note/Attestation ---
Pre-Procedure Note/Attestation Complete Prior to Procedure Planned Procedure: not applicable Procedure Narrative: egd/colonoscopy Indications for Procedure Pre-Operative Diagnosis: anemia Attestation I attest that I discussed the nature of the procedure; its benefits; risks and complications; and alternatives (and the risks and benefits of such alternatives ), prior to the procedure, with the patient (or the patient's legal utility sales representative). I attest that, if there was a reasonable possibility of needing a blood transfusion, the patient (or the patient's legal utility sales representative) was given the [facility] standardized written summary, pursuant to the Arthur Matheus Blood Safety Act ([place] Health and Safety Code # 1645, as amended). I attest that I re-evaluated the patient just prior to the surgery and that there has been no change in the patient's H&P, except as documented below: ROMMEL LAMA Jul 17, 2016 09:45
--- NOTE | 2016-07-17 09:46 | Short Stay Surgery H&P ---
History of Present Illness History of Present Illness Chief Complaint anemia, screening colonoscopy HPI Ahmet Sampson is a 56 year old male who was admitted on for Colon Screening Patient History Allergies: Coded Allergies: No Known Allergies (Unverified , 06/16/16) PAST MEDICAL HISTORY: (1) Anemia (2) Diverticulosis (3) DM (diabetes mellitus) Past Surgeries: Social History: Medication History Scheduled Atorvastatin Calcium* (Lipitor*), 10 MG ORAL DAILY, (Reported) Lisinopril* (Prinivil*), 10 MG ORAL DAILY, (Reported) Metformin Hcl* (Metformin Hcl*), 1,000 MG ORAL BID, (Reported) Review of Systems Cardiovascular: Reports: no symptoms Respiratory: Reports: no symptoms Skeletal: Reports: no symptoms Gastrointestinal: Reports: no symptoms Genitourinary: Reports: no symptoms Neurologic: Reports: no symptoms Endocrine: Reports: no symptoms Hematologic: Reports: no symptoms Physical Exam Vital Signs Last Vital Signs Date Time Temp Pulse Resp B/P Pulse Ox O2 Delivery O2 Flow Rate FiO2 07/17/16 08:20 97.6 57 18 129/56 99 Room Air Skin: normal HENT: normal Heart: normal Lungs: normal Abdomen: normal Extremities: normal Plan Plan of Care egd/colon Final Diagnosis: Attestation Are the patient's medical conditions optimized for surgery? Attestation Response: yes ROMMEL LAMA Jul 17, 2016 09:46
--- NOTE | 2016-07-17 09:49 | Anethesia Preoperative Eval ---
Anesthesia Pre-op PMH/ROS General Date of Evaluation: Jul 17, 2016 Time of Evaluation: 09:45 Anesthesiologist: Hunter ASA Score: ASA 2 Mallampati Score Class I : Soft palate, uvula, fauces, pillars visible Class II: Soft palate, uvula, fauces visible Class III: Soft palate, base of uvula visible Class IV: Only hard plate visible Mallampati Classification: Class II Surgeon: Chago Diagnosis: Abdominal pain Surgical Procedure: Colonoscopy Anesthesia History: none Social History: current smoker Family History: no anesthesia problems Allergies: Coded Allergies: No Known Allergies (Unverified , 06/16/16) Medications: see eMAR Past Medical History Cardiovascular: Reports: HTN - mild, Denies: CAD, [place], arrhythmia, other, valve dz Pulmonary: Denies: COPD, MORE, asthma, other Gastrointestinal/Genitourinary: Reports: GERD, Denies: CRI, ESRD, other Neurologic/Psychiatric: Denies: CVA, TIA, dementia, depression/anxiety, other Endocrine: Reports: DM - stable on pills, Denies: hypothyroidism, other, steroids HEENT: Denies: UPPER [place] (L), UPPER [place] (R), cataract (L), cataract (R), glaucoma, other Hematology/Immune: Reports: anemia - mild, Denies: DVT, bleeding disorder, other Musculoskeletal/Integumentary: Denies: DDD, DJD, OA, RA, edema, other PMH Narrative: as above PSxH Narrative: Perirectal abscess Anesthesia Pre-op Phys. Exam Physician Exam Last Vital Signs Date Time Temp Pulse Resp B/P Pulse Ox O2 Delivery O2 Flow Rate FiO2 07/17/16 08:20 97.6 57 18 129/56 99 Room Air Constitutional: NAD Neurologic: CN 2-12 intact Cardiovascular: RRR, no M/R/G Respiratory: CTA Gastrointestinal: S/NT/ND Airway Exam Mallampati Score: Class II MO: full Neck: flexible ROM: full Teeth: missing Dentures: lower, upper Anesthesia Pre-op A/P Labs see chart Accucheck 105 at admission Studies Pre-op Studies: EKG - NSR Risk Assessment & Plan Assessment: ASA 2 Plan: MAC Status Change Before Surgery: No Pre-Antibiotics Drug: none BENI GOLDMAN M.D. Jul 17, 2016 09:49
--- NOTE | 2016-07-17 10:16 | Endoscopy Procedure Note ---
Endoscopy Procedure Note Indication for Procedure: anemia, screening colonoscopy Procedures Performed: EGD, colonoscopy Operative Findings/Diagnosis: 6 polyps Specimen: yes Pt Tolerated Procedure Well: Yes Estimated Blood Loss: none Anesthesiologist: hilton Anesthesia: MAC Implant(s) used?: No 50 yrs or older w/o bx or poly: No 10yrs. F/U not recommended: Yes If not recommended, why?: Above average risk 10 yrs. F/U needed: Yes 18 years or older w/prev. colo: No ROMMEL LAMA Jul 17, 2016 10:16
--- NOTE | 2016-07-17 10:48 | Immediate Post-Op Evaluation ---
Immediate Post-Op Evalulation Immediate Post-Op Evalulation Procedure: EGD Colonoscopy polipectomy Date of Evaluation: Jul 17, 2016 Time of Evaluation: 10:47 IV Fluids: 200 Blood Products: none Estimated Blood Loss: none Urinary Output: none Blood Pressure Systolic: 143 Blood Pressure Diastolic: 73 Pulse Rate: 54 Respiratory Rate: 20 O2 Sat by Pulse Oximetry: 99 Temperature (Fahrenheit): 97.4 Pain Score (1-10): 1 Nausea: No Vomiting: No Complications none Patient Status: awake, patent, none Hydration Status: adequate BENI GOLDMAN M.D. Jul 17, 2016 10:48
--- NOTE | 2016-07-17 11:32 | 48 Hour Post Anesthesia Eval ---
Post Anesthesia Evaluation Procedure: EGD Colonoscopy polipectomy Date of Evaluation: Jul 17, 2016 Time of Evaluation: 11:31 Blood Pressure Systolic: 117 0: 52 Pulse Rate: 77 Respiratory Rate: 20 Temperature (Fahrenheit): 99.6 O2 Sat by Pulse Oximetry: 99 Airway: patent Nausea: No Vomiting: No Pain Intensity: 1 Cardiopulmonary Status: stable Mental Status/LOC: patient returned to baseline Follow-up Care/Observations: n/a Post-Anesthesia Complications: none Follow-up care needed: ready to discharge BENI GOLDMAN M.D. Jul 17, 2016 11:32
--- NOTE | 2016-07-17 21:08 | Procedure Note ---
DATE OF PROCEDURE: 07/17/2016 SURGEON: Jason Anders M.D. PROCEDURE: Upper endoscopy with biopsy and colonoscopy with biopsy and snare polypectomy. ANESTHESIOLOGIST: Christian Harrison M.D. INSTRUMENT: Olympus adult flexible upper endoscope and colonoscope. INDICATION: 1. Screening colonoscopy. 2. Anemia. REASON FOR PROCEDURE: The procedure, risks, benefits, and possible consequences, including hemorrhage, aspiration, perforation and infection, and alternative treatments, were explained to the patient/legal guardian by Dr. Jason Anders and the patient/legal guardian understood and accepted these risks. DESCRIPTION OF PROCEDURE: After informed consent was obtained and the patient was adequately sedated, first Olympus upper endoscope was advanced from mouth into the second portion of the duodenum and retroflexion was performed in the stomach. The patient had diffuse gastritis. Random biopsy from antrum was obtained to rule out H. pylori infection. The patient also had evidence of mild duodenitis. No evidence of any active ulceration at this time. At this time, the upper endoscope was retrieved and the patient was turned over for colonoscopy. First, a rectal exam was performed, which shows normal. Then, the scope was advanced from the rectum into the cecum documented by appendiceal orifice, ileocecal valve, and right upper quadrant palpation. Quality of prep was very good. The patient had one sessile polyp in the cecum measured roughly about 5 mm and removed with the cold snare polypectomy technique. There was a diminutive polyp next to it, which was removed with cold biopsy forceps technique. The patient had one single diverticula in the right colon. The patient had multiple hyperplastic-looking polyps in the rectosigmoid area. Four of them were biopsied. Retroflexion of rectum showed evidence of internal hemorrhoids. SUMMARY OF FINDINGS: 1. Gastritis, status post biopsy. 2. Duodenitis. 3. Six colonic polyps removed, see above for details. 4. One single diverticula in the right colon. 5. Internal hemorrhoids. RECOMMENDATIONS: Follow up biopsies and treat accordingly. Jason Anders M.D. DR: MARIOLA JOB#: [id number] CC:
== END | disposition home or self-care (01) ==
LOC: GAS 08:07
DX: Z12.11 Encounter for screening for malignant neoplasm of colon (principal); D12.7 Benign neoplasm of rectosigmoid junction; D12.0 Benign neoplasm of cecum; K64.8 Other hemorrhoids; K57.30 Diverticulosis of large intestine without perforation or abscess without bleeding; D64.9 Anemia, unspecified; K29.50 Unspecified chronic gastritis without bleeding; K29.80 Duodenitis without bleeding; B96.81 Helicobacter pylori [H. pylori] as the cause of diseases classified elsewhere; E11.9 Type 2 diabetes mellitus without complications; Z79.84 Long term (current) use of oral hypoglycemic drugs; I10 Essential (primary) hypertension; K21.9 Gastro-esophageal reflux disease without esophagitis
CPT/HCPCS: 82962; 93005; 94003; 94150; J2250

== ENCOUNTER 2016-11-09 13:52 | Outpatient (CLI) | payer BC ==
[~2016-11-09 13:52] MED LIST changes: -DiphenhydrAMINE 50mg/ml Inj IVP PRN; -LR 1000ml 1,000 ML IVLG SCH; -LR 1000ml ONE; -Meperidine 25mg/ml Inj IV PRN; -Midazolam 2mg/2ml Inj ONE; -Propofol 10mg/ml 20ml IV ONE; -fentaNYL 100 mcg/2 mL IV ONE
== END 2016-11-09 14:05 | disposition home or self-care (01) ==
LOC: PAN 13:52
DX: K29.70 Gastritis, unspecified, without bleeding (principal); A04.8 Other specified bacterial intestinal infections
CPT/HCPCS: 83013; 83014

== ENCOUNTER 2019-06-04 11:34 | Emergency (ER) | payer BC ==
[~2019-06-04] VITALS: Ht 175.3 cm; Wt 79.8 kg
[2019-06-04 11:37] VITALS: BP 156/74
[2019-06-04] MEDS ORDERED: Omnipaque-300 100ml vial INJ PRN (12:15)
[2019-06-04] MEDS ORDERED: Ketorolac 30mg Inj IV ONE (12:15)
[2019-06-04] MEDS ORDERED: Piperacillin/Tazobactam 3.375 GM in NS 110 ML IVPB ONE (12:15)
[2019-06-04 12:50] LABS: ANION GAP 12 mmol/L (5-15); BLOOD UREA NITROGEN 19 mg/dL (7-18); CALCIUM 9.7 MG/DL (8.5-10.1); CARBON DIOXIDE 25 MMOL/L (21-32); CHLORIDE 103 MMOL/L (98-107); CREATININE 0.8 MG/DL (0.55-1.30); SODIUM 140 MMOL/L (136-145)
[2019-06-04 12:55] LABS: ALANINE AMINOTRANSFERASE 26 U/L (12-78); ALBUMIN 3.3 G/DL (3.4-5.0); ALBUMIN/GLOBULIN RATIO 0.8 (1.0-2.7); ALKALINE PHOSPHATASE 96 U/L (46-116); ASPARTATE AMINO TRANSFERASE 13 U/L (15-37); BILIRUBIN,TOTAL 0.3 MG/DL (0.2-1.0)
[2019-06-04 12:59] LABS: BASOPHILS % (AUTO) 1.6 % (0.0-2.0); HEMATOCRIT 40.7 % (42.0-52.0); HEMOGLOBIN 13.9 G/DL (14.2-18.0); LYMPHOCYTES % (AUTO) 16.7 % (20.0-45.0); MEAN CORPUSCULAR VOLUME 84 FL (80-99); MONOCYTES % (AUTO) 8.4 % (1.0-10.0); NEUTROPHILS % (AUTO) 70.3 % (45.0-75.0); PLATELET COUNT 258 K/UL (150-450); RED BLOOD COUNT 4.83 M/UL (4.70-6.10); RED CELL DISTRIBUTION WIDTH 11.3 % (11.6-14.8); WHITE BLOOD COUNT 9.4 K/UL (4.8-10.8)
[2019-06-04 13:04] LABS: APPEARANCE,URINE CLEAR; COLOR,URINE YELLOW
[2019-06-04 13:05] LABS: GLUCOSE, URINE (UA) 4+ (NEGATIVE); KETONES,URINE 1+ (NEGATIVE); PROTEIN,URINE 3+ (NEGATIVE)
[2019-06-04 13:06] LABS: BILIRUBIN, URINE NEGATIVE (NEGATIVE); LEUKOCYTE ESTERASE ,URINE NEGATIVE (NEGATIVE); NITRITE,URINE NEGATIVE (NEGATIVE); UROBILINOGEN,URINE NORMAL MG/DL (0.0-1.0)
[2019-06-04 13:21] LABS: INR 0.9 (0.9-1.1)
[2019-06-04 15:30] VITALS: BP 149/70
--- NOTE | 2019-06-04 15:35 | Diagnostic Imaging Report ---
INDICATION: Abdominal pain TECHNIQUE: Continuous helical transaxial imaging of the abdomen and pelvis was obtained from the lung bases to the pubic symphysis during intravenous contrast administration. Coronal 2-D reformats were also obtained. Study obtained in a Siemens sensation [address] Automatic Exposure Control was utilized. Total Dose length Product (DLP): 414.[address] Dose Index Volume (CTDIvol): 6.4 mGy COMPARISON: CT abdomen 06/16/2016 FINDINGS: Lungs: There is minimal hazy left basilar opacity likely atelectasis seen within the dependent portion of the left lung base.. Liver: There is a 3.8 cm hypodense mass with globular enhancement consistent with a hemangioma within the left lobe of the liver. This was seen previously as well. Gallbladder/biliary system: No gallstones are identified. There is no evidence of intrahepatic or extrahepatic biliary ductal dilatation. Spleen: Unremarkable Pancreas: Unremarkable Kidneys/Bladder: No hydronephrosis identified. Both kidneys enhance symmetrically. The urinary bladder is unremarkable.. Adrenal glands: Unremarkable Aorta/IVC: There is moderate calcification of aorta and iliac arteries. Bowel: Appendix is normal. Bowel gas pattern is nonobstructive. There is no free fluid. Peritoneum: There is no free fluid. Bones: Generalized osteopenia demonstrated. There is suggestion of a mild disc bulge at L4-5. IMPRESSION: No acute findings appreciated. Multiple incidental findings as above The CT scanner at [facility] is accredited by the [employer] and the scans are performed using dose optimization techniques as appropriate to a performed exam including Automatic Exposure control.
--- NOTE | 2019-06-04 15:44 | Consultation ---
History of Present Illness General Date patient seen: Jun 04, 2019 Reason for Hospitalization: Pain Present Illness HPI This is a very pleasant 59-year-old male otherwise healthy who presented to the emergency department at [facility] complaining of worsening left scrotal groin pain. Patient states approximately began for 5 days ago and is been worsening since. Patient states that he wears pads for his urinary incontinence while at work and has a plastic lining around the side which rubs in that area and potentially was do that. I asked his friend about it and was told potentially could be a hernia. Pain progressively worsening and discomfort came in for evaluation in emergency department. Given location and size of identifiable abscess surgery called to evaluate and assist with care. Patient seen in emergency department patient evaluated chart reviewed. No nausea vomiting fever chills. Labs noted. Allergies: Coded Allergies: No Known Allergies (Unverified , 06/16/16) Medication History Scheduled Atorvastatin Calcium* (Lipitor*), 10 MG ORAL DAILY, (Reported) Lisinopril* (Prinivil*), 10 MG ORAL DAILY, (Reported) Metformin Hcl* (Metformin Hcl*), 1,000 MG ORAL BID, (Reported) Patient History History Provided By: Patient Healthcare decision maker Resuscitation status Advanced Directive on File Past Medical/Surgical History Past Medical/Surgical History: (1) Fever (2) Cholecystitis, acute (3) Anemia (4) Diverticulosis (5) DM (diabetes mellitus) Review of Systems Review of Symptoms General ROS: no weight loss or fever Psychological ROS: no depression or mood changes, no memory loss Ophthalmic ROS: no visual changes or eye irritation ENT ROS: no nasal congestion, hearing loss, dizziness Allergy and Immunology ROS: no allergic symptoms or urticaria Hematological and Lymphatic ROS: no swollen glands, unusual bleeding or bruising Endocrine ROS: no polyuria, polydipsia, weight changes, temperature intolerance Respiratory ROS: no cough, shortness of breath, or wheezing Cardiovascular ROS: no chest pain or dyspnea on exertion Gastrointestinal ROS: denies abdominal pain, bright red blood in stool. Musculoskeletal ROS: no myalgias or arthralgias Neurological ROS: no TIA or stroke symptoms Dermatological ROS: no new or changing skin lesions, rashes or pruritis Left groin inguinal scrotal pain Physical Exam Physical Exam General appearance: alert, cooperative, no distress, appears stated age Head: Normocephalic, without obvious abnormality, atraumatic Eyes: conjunctivae/corneas clear. PERRL, EOM's intact. Fundi benign Throat: Lips, mucosa, and tongue normal. Teeth and gums normal Neck: supple, symmetrical, trachea midline, no adenopathy, thyroid: not enlarged, symmetric, no tenderness/mass/nodules, no carotid bruit and no JVD Lungs: clear to auscultation bilaterally Heart: regular rate and rhythm, S1, S2 normal, no murmur, click, rub or gallop Abdomen: soft, non-tender. Bowel sounds normal. No masses, no organomegaly Extremities: extremities normal, atraumatic, no cyanosis or edema Pulses: 2+ and symmetric Skin: Skin color, texture, turgor normal. Patient identified to have a left scrotal abscess just lateral to the left side of the penis and mildly inferior around the pubic fat pad and the pelvis scrotum. Erythema edema fluctuance tender no drainage Neurologic: Grossly normal Last 24 Hour Vital Signs Date Time Temp Pulse Resp B/P (MAP) Pulse Ox O2 Delivery O2 Flow Rate FiO2 06/04/19 14:50 97.5 06/04/19 11:37 97.5 81 18 156/74 (101) 99 Room Air 06/04/19 11:37 97.5 81 18 156/74 99 Room Air Laboratory Tests Test 06/04/19 12:05 06/04/19 12:30 Sodium Level 140 MMOL/L (136-145) Potassium Level 4.0 MMOL/L (3.5-5.1) Chloride Level 103 MMOL/L (98-107) Carbon Dioxide Level 25 MMOL/L (21-32) Anion Gap 12 mmol/L (5-15) Blood Urea Nitrogen 19 mg/dL (7-18) H Creatinine 0.8 MG/DL (0.55-1.30) Estimat Glomerular Filtration Rate > 60 mL/min (>60) Glucose Level 359 MG/DL (74-106) H Lactic Acid Level 1.70 mmol/L (0.4-2.0) Calcium Level 9.7 MG/DL (8.5-10.1) Total Bilirubin 0.3 MG/DL (0.2-1.0) Aspartate Amino Transf (AST/SGOT) 13 U/L (15-37) L Alanine Aminotransferase (ALT/SGPT) 26 U/L (12-78) Alkaline Phosphatase 96 U/L (46-116) Total Protein 7.2 G/DL (6.4-8.2) Albumin 3.3 G/DL (3.4-5.0) L Globulin 3.9 g/dL Albumin/Globulin Ratio 0.8 (1.0-2.7) L White Blood Count 9.4 K/UL (4.8-10.8) Red Blood Count 4.83 M/UL (4.70-6.10) Hemoglobin 13.9 G/DL (14.2-18.0) L Hematocrit 40.7 % (42.0-52.0) L Mean Corpuscular Volume 84 FL (80-99) Mean Corpuscular Hemoglobin 28.8 PG (27.0-31.0) Mean Corpuscular Hemoglobin Concent 34.2 G/DL (32.0-36.0) Red Cell Distribution Width 11.3 % (11.6-14.8) L Platelet Count 258 K/UL (150-450) Mean Platelet Volume 5.4 FL (6.5-10.1) L Neutrophils (%) (Auto) 70.3 % (45.0-75.0) Lymphocytes (%) (Auto) 16.7 % (20.0-45.0) L Monocytes (%) (Auto) 8.4 % (1.0-10.0) Eosinophils (%) (Auto) 3.0 % (0.0-3.0) Basophils (%) (Auto) 1.6 % (0.0-2.0) Prothrombin Time 9.5 SEC (9.30-11.50) Prothromb Time International Ratio 0.9 (0.9-1.1) Activated Partial Thromboplast Time 24 SEC (23-33) Urine Color Yellow Urine Appearance Clear Urine pH 5.0 (4.5-8.0) Urine Specific [place] 1.015 (1.005-1.035) Urine Protein 3+ (NEGATIVE) H Urine Glucose (UA) 4+ (NEGATIVE) H Urine Ketones 1+ (NEGATIVE) H Urine Blood Negative (NEGATIVE) Urine Nitrite Negative (NEGATIVE) Urine Bilirubin Negative (NEGATIVE) Urine Urobilinogen Normal MG/DL (0.0-1.0) Urine Leukocyte Esterase Negative (NEGATIVE) Urine RBC 0-2 /HPF (0 - 0) H Urine WBC 0-2 /HPF (0 - 0) Urine Squamous Epithelial Cells None /LPF (NONE/OCC) Urine Bacteria Occasional /HPF (NONE) Height (Feet): 5 Height (Inches): 9.00 Weight (Pounds): 176 Medications Current Medications Medications (Trade) Dose Ordered Sig/Melvin Route PRN Reason Start Time Stop Time Status Last Admin Dose Admin Iohexol (OMNIPAQUE-300 100ml) 100 ml NOW PRN INJ Radiology Procedure 06/04/19 12:15 06/06/19 12:05 Assessment/Plan Problem List: (1) Pelvic abscess SNOMED: 298328360 (2) Scrotal abscess Assessment & Plan: Patient identified to have a left scrotal abscess just lateral to the left side of the penis and mildly inferior around the pubic fat pad and the pelvis scrotum. Erythema edema fluctuance tender no drainage Incision and drainage indicated recommended. Risk-benefit alternatives discussed patient in detail expressed understanding and consented procedure which was performed at bedside in the emergency department Please see operative report for details Wound cleansed after abscess drained Packing and dressing applied Oral antibiotics as per ED Discharge okay from surgical standpoint Outpatient follow-up given for patient on June 11, 2019 at 11 AM in my office my card was given to patient along with the appointment time and date Thank you for let me participate in patient's care ICD Codes: N49.2 - Inflammatory disorders of scrotum SNOMED: [id number] Nilesh Bernal Jun 04, 2019 15:44
--- NOTE | 2019-06-04 15:46 | Operative Note - PDOC ---
Operative Note Operative Note Date of Operation/Procedure: Jun 04, 2019 Pre-op Diagnosis: Left scrotal/pelvic abscess in male Procedure: Incision and drainage of left scrotal/pelvic abscess Post-op Diagnosis: same as pre-op Surgeon: Nilesh Bernal MD Anesthesia: local Specimen: yes Complications: none Estimated Blood Loss: none Drains: none Implant(s) used?: No Indications for Procedure 59-year-old male presented to [facility] emergency room complaining of left pelvic/scrotal pain believed to be potential inguinal hernia worsening pain over the past few days on evaluation initially identified to have an abscess given location size surgery called to evaluate and assist. Patient was seen indicated for incision and drainage consent obtained procedure performed in emergency department Description of Procedure Patient was made comfortable at bedside in supine position. The left pubis and scrotum were prepped draped in standard surgical fashion. A approximately 3 cm x 4 cm area of tenderness fluctuance erythema edema were identified as an abscess with fluctuance at the apex. When patient was made comfortable after prepping and draping a fresh #11 scalpel was used and a cruciate incision was made at the area of maximal fluctuance. Approximately 5 cc of purulent fluid and some purulent slough was evacuated that was under pressure. Cultures were taken and sent to microbiology for review. Wound was irrigated with copious amounts of sterile saline followed by packing and dressing. Patient taught procedure well. Packing dressing applied and follow-up given as well as oral antibiotics. Patient discharged from emergency department stable condition. Nilesh Bernal Jun 04, 2019 15:46
--- NOTE | 2019-06-04 15:59 | Emergency Room Report ---
History of Present Illness General Chief Complaint: Pain Source: Patient Present Illness HPI 59-year-old male with history of diabetes and hypertension both controlled with medication here complaining of 1 week of left-sided inguinal pain rating a 10 out of 10. Reports that he has history of abscess in the same location and had to be surgically drained few years ago. Obvious superficial abscess noted however patient is tender to palpation around the area. Denies any scrotal pain. Denies any pain radiation. Is afebrile. Denies chest pain, shortness of breath, headache and dizziness. Has not taken medication for symptom relief. Up-to-date with tetanus shot. Denies any urinary frequency and urgency. Allergies: Coded Allergies: No Known Allergies (Unverified , 06/16/16) Patient History Past Medical History: see triage record Past Surgical History: none Pertinent Family History: none Immunizations: UTD Reviewed Nursing Documentation: PMH: Agreed; PSxH: Agreed Nursing Documentation-PMH Past Medical History: No History, Except For Hx Cardiac Problems: No Hx Hypertension: Yes Hx Diabetes: Yes Hx Cancer: No Hx Gastrointestinal Problems: Yes - history of gely-rectal abscess x 2 Hx Neurological Problems: No Review of Systems All Other Systems: negative except mentioned in HPI Physical Exam Vital Signs Date Time Temp Pulse Resp B/P (MAP) Pulse Ox O2 Delivery O2 Flow Rate FiO2 06/04/19 11:37 97.5 81 18 156/74 99 Room Air Sp02 EP Interpretation: reviewed, normal General Appearance: no apparent distress, alert, GCS 15, non-toxic Head: normocephalic, atraumatic Eyes: bilateral eye normal inspection, bilateral eye PERRL ENT: hearing grossly normal, normal pharynx, no angioedema, normal voice Neck: full range of motion, supple/symm/no masses Respiratory: chest non-tender, lungs clear, normal breath sounds, no rhonchi, no retraction, no wheezing, speaking full sentences Cardiovascular #1: regular rate, rhythm, no edema, no murmur Cardiovascular #2: 2+ femoral (R), 2+ femoral (L) Gastrointestinal: normal bowel sounds, non tender, soft, non-distended, no guarding, no rebound Rectal: deferred Genitourinary: no CVA tenderness, scrotum normal, deferred - Left inguinal abscess Musculoskeletal: back normal, normal range of motion, no calf tenderness Neurologic: alert, motor strength/tone normal, oriented x3, sensory intact, responsive, speech normal Psychiatric: judgement/insight normal Skin: normal color, normal turgor, well hydrated Lymphatic: adenopathy - Left inguinal node Medical Decision Making PA Attestation All my diagnosis and treatment plans were reviewed ad discussed with my supervising physician Dr. Bejarano Diagnostic Impression: Primary Impression: Inguinal abscess Additional Impression: Liver hemangioma ER Course 59-year-old male with history of diabetes and hypertension both controlled with medication here complaining of 1 week of left-sided inguinal pain rating a 10 out of 10. Reports that he has history of abscess in the same location and had to be surgically drained few years ago. Obvious superficial abscess noted however patient is tender to palpation around the area. Denies any scrotal pain. Denies any pain radiation. Is afebrile. Denies chest pain, shortness of breath, headache and dizziness. Has not taken medication for symptom relief. Up-to-date with tetanus shot. Denies any urinary frequency and urgency. Ddx considered but are not limited to : Cellulitis, incarcerated inguinal hernia , nonreducible inguinal hernia, deep inguinal abscess superficial infection, abscess Vital signs: are WNL, pt. is afebrile H&PE are most consistent with:superficial inguinal abscess, liver hemangioma ORDERS: CBC, CMP, UA, type and screen, PT and PTT, bedside ultrasound of the inguinal area to rule out incarceration as appears to be changing colors, CT abdomen pelvis with contrast, Bactrim, Keflex, Motrin ED INTERVENTIONS: NS bolus, Zosyn DISCHARGE: At this time pt. is stable for d/c to home. Will provide printed patient care instructions, and any necessary prescriptions. Care plan and follow up instructions have been discussed with the patient prior to discharge. Dr. Bernal consulted the patient and also drain the abscess also patient to follow-up with him within 2 3 days. At this time patient is afebrile and within normal limits does not require hospitalization however return to emergency room if worsening symptoms. Culture was obtained from the wound by , follow-up primary care provider for liver hemangioma CT/MRI/US Diagnostic Results CT/MRI/US Diagnostic Results #1: Imaging Test Ordered: CT abdomen pelvis with contrast Impression 3.8 cm liver hemangioma, no other abnormality noted CT/MRI/US Diagnostic Results #2: Imaging Test Ordered: Pelvic ultrasound left side Impression Superficial abscess, no hernia Last Vital Signs Date Time Temp Pulse Resp B/P (MAP) Pulse Ox O2 Delivery O2 Flow Rate FiO2 06/04/19 14:50 97.5 06/04/19 11:37 81 18 156/74 (101) 99 Room Air Disposition: HOME, SELF-CARE Condition: Stable Scripts Ibuprofen* (MOTRIN*) 600 Mg Tablet 600 MG ORAL Q8H PRN for For Pain, #30 TAB 0 Refills Prov: Aydin Villa 06/04/19 Trimethoprim/Sulfamethoxazole 160/800* (BACTRIM DS TABLET*) 1 Each Tablet 1 TAB ORAL TWICE A DAY for 7 Days, #14 TAB Prov: Aydin Villa 06/04/19 Cephalexin* (KEFLEX*) 500 Mg Capsule 500 MG ORAL EVERY 6 HOURS for 7 Days, #28 CAP Prov: Aydin Villa 06/04/19 Patient Instructions: Abscess, [id number] Additional Instructions: Take medication as directed, follow-up with your primary care provider, if worsening symptoms return to emergency room Aydin Villa Jun 04, 2019 15:59
[2019-06-04] MEDS ORDERED: BACTRIM DS TAB1 EAC1 ORAL (16:00)
[2019-06-04] MEDS ORDERED: IBUPROFEN600 MG ORAL (16:00)
[2019-06-04] MEDS ORDERED: CEPHALEXIN500 MG ORAL (16:00)
[2019-06-04 16:14] VITALS: BP 149/70
--- NOTE | 2019-06-04 16:57 | Diagnostic Imaging Report ---
Indication:Pain and swelling Technique: Grayscale and duplex Doppler imaging of the area of clinical concern the left groin performed. Comparison: None Findings: Just deep to the skin there is a slightly lobulated superficial 2.3 x 1.4 cm collection suspicious for abscess. This is very superficial and should be palpable. This appears to be above the left testis in the inguinal region. Please correlate clinically. IMPRESSION: Suspect a small abscess superficial location just deep to the skin in the left groin region. This should be clinically apparent. Consider incision and drainage
== END 2019-06-04 16:10 | disposition home or self-care (01) ==
LOC: EMR 12:30
DX: L02.214 Cutaneous abscess of groin (principal); D18.03 Hemangioma of intra-abdominal structures; N49.2 Inflammatory disorders of scrotum; E11.9 Type 2 diabetes mellitus without complications; I10 Essential (primary) hypertension; M85.80 Other specified disorders of bone density and structure, unspecified site; R32 Unspecified urinary incontinence; Z79.84 Long term (current) use of oral hypoglycemic drugs; Z79.899 Other long term (current) drug therapy; Z87.19 Personal history of other diseases of the digestive system
CPT/HCPCS: 36415; 55100; 74177; 76857; 80053; 81003; 83605; 85025; 85610; 85730; 96365; 96375; 99284; J1885; J2543; J7030; Q9967